=== PATIENT | female | born 1960 ===

== ENCOUNTER 2017-09-16 11:16 | Emergency (ER) | payer SELFPAY ==
[2017-09-16 12:04] VITALS: BP 151/91; PULSE 87; RESP 17; TEMP 98.6; O2SAT 97
--- NOTE | 2017-09-16 12:39 | C.PDOC ---
History Of Present Illness 57 year old female presents to the ED requesting a medicine refill. Patient is a head and neck cancer survivor who suffers from chronic generalized body pain. Patient recently moved to [place] from [place]. She is requesting medicine refill for oxycodone for her fibromyalgia. Patient tried to be evaluated by clinic today but was unable to get an appointment. Patient denies fever, chills. Time Seen by Provider: 09/16/17 12:03 Chief Complaint (Nursing): Med Refill History Per: Patient History/Exam Limitations: no limitations Onset/Duration Of Symptoms: Hrs Current Symptoms Are (Timing): Still Present Past Medical History Reviewed: Historical Data, Nursing Documentation, Vital Signs Vital Signs: Last Vital Signs Temp 98.6 F 09/16/17 11:53 Pulse 87 09/16/17 11:53 Resp 17 09/16/17 11:53 BP 151/91 H 09/16/17 11:53 Pulse Ox 97 09/16/17 16:46 - Medical History PMH: Anemia, Depression, HTN, Hyperlipidemia, Hypothyroidism Surgical History: No Surg Hx Family History: States: Unknown Family Hx - Social History Hx Alcohol Use: No Hx Substance Use: No - Immunization History Hx Tetanus Toxoid Vaccination: No Hx Influenza Vaccination: No Review Of Systems Musculoskeletal: Positive for: Other (generalized body aches ) Physical Exam - Physical Exam Appears: Non-toxic, No Acute Distress Skin: Normal Color, Warm, Dry, Other (significant scarring around left neck and chest region ) Head: Atraumatic, Normacephalic Eye(s): bilateral: Normal Inspection Oral Mucosa: Moist Neck: Supple Chest: Symmetrical, No Deformity, No Tenderness Cardiovascular: Rhythm Regular, No Murmur Respiratory: Normal Breath Sounds, No Rales, No Rhonchi, No Wheezing Extremity: Normal ROM, Capillary Refill (less than 2 seconds ) Neurological/Psych: Oriented x3, Normal Speech, Normal Cognition Gait: Steady ED Course And Treatment O2 Sat by Pulse Oximetry: 97 (on RA) Pulse Ox Interpretation: Normal Medical Decision Making Medical Decision Making: Progress: Discussed with clinic and arranged for a follow-up appointment on patient's behalf. Disposition - Disposition Referrals: [facility] [Outside] Disposition: HOME/ ROUTINE Disposition Time: 12:37 Condition: STABLE Instructions: Chronic Pain (DC) Forms: General Discharge Instructions - POA Present On Arrival: None - Clinical Impression Clinical Impression: Chronic pain disorder - Scribe Statement The provider has reviewed the documentation as recorded by the Scribe (Meagan Miranda) Provider Attestation: All medical record entries made by the Scribe were at my direction and personally dictated by me. I have reviewed the chart and agree that the record accurately reflects my personal performance of the history, physical exam, medical decision making, and the department course for this patient. I have also personally directed, reviewed, and agree with the discharge instructions and disposition.
== END 2017-09-16 12:55 | disposition home or self-care (01) ==
LOC: C.ER 11:16
DX: G89.29 Other chronic pain (principal)